=== PATIENT | female | born 2005 | race Two or more races ===

== ENCOUNTER 2024-06-16 23:57 | Emergency (ER) | payer MEDICAID, SELFPAY ==
[2024-06-16 23:58] VITALS: BMI 28.3
[2024-06-17 00:12] VITALS: BP 128/77; PULSE 88; RESP 18; TEMP 36.9; O2SAT 99
--- NOTE | 2024-06-17 00:19 | XR_ITS ---
EXAMINATION: Ankle, 3 views . Technique: Ankle AP, oblique, lateral 3 views Date and time of exam: June 17, 2024 0022 hrs. Indications: Injury to the ankle today, ankle pain Findings: No acute fracture No ankle dislocation Impression: No acute fracture
--- NOTE | 2024-06-17 00:20 | EDNOTE_ITS ---
<Statement entered by Luz Sanderson MD - 06/17/24 22:07> As co-signing physician, I was present and available for consult prn. I concur with the plan and care as documented by the midlevel provider. Lower Extremity Injury RME/HPI General Chief Complaint: Ankle/Foot Injury Stated Complaint: RIGHT ANKLE INJURY Time Seen by Provider: 06/17/24 00:07 Arrival date/time: 06/16/24 23:57 18 year old female present to emergency room with c/o of right ankle injury last night. LOCATION: ankle SEVERITY: Symptoms are described as being severe with limitations on activities of daily living QUALITY: Symptoms are described as being dull or achy CONTEXT: jump off porch and injury ankle/rolled DURATION/TIMING: The symptoms started approximately 1 day ago and have been constant this then. ASSOCIATED SYMPTOMS: The patient is unable to identify any other associated symptoms. MODIFYING FACTORS: The patient is unable to identify any alleviating or aggravating symptoms. PERTINENT ROS: no fevers, no headache, no neck or chest pain, no unexplained nausea or vomiting, no focal neurological deficits REVIEW OF SYSTEMS: See History of Present Illness - with the exception of those mentioned in the history of present illness, all other systems reviewed and reported as negative GENERAL: In general the patient is awake, interactive, in an emergency department gurney. HEAD/EYES/EARS/NOSE/THROAT: normo-cephalic, atraumatic, mucus membranes are moist, anicteric, palpebral conjunctiva is pink, trachea is midline. CARDIOVASCULAR: regular rate and regular rhythm, no murmurs, heart sounds are not distant, strong pulses in all four extremities that are equal and symmetric bilateral upper and lower extremities, normal capillary refill. NEUROLOGICAL: cranio-facial features are symmetric, moves all four extremities equally without obvious limitations or weakness. EXTREMITY: right lateral ankle tenderness and swelling noted. limp with ambulation no tenderness to palpation over the long bones or large joints of the bilateral upper extremities, no joint swelling, no joint erythema, no unilateral leg swelling and no peripheral edema. SKIN: warm, dry, well-perfused, no jaundice, no rash, no telangiectasias or petechia. PSYCH: calm, cooperative, no evidence of psychosis or agitation Related Data Previous Rx's ?Medication ?Instructions ?Recorded acetaminophen 500 mg tablet 1,000 mg (2 x 500 mg) PO Q6H PRN 08/06/20 (Tylenol Extra Strength) fever or pain #30 tabs albuterol sulfate 90 mcg/actuation 2 puff inhalation QID PRN 08/06/20 aerosol inhaler shortness of breath or wheezing #18 grams azithromycin 250 mg tablet See Rx Instructions PO .COMPLEX #6 08/06/20 tabs ibuprofen 800 mg tablet 800 mg PO TID PRN pain #30 tabs 08/20/23 Allergies Allergy/AdvReac Type Severity Reaction Status Date / Time No Known Allergies Allergy Verified 08/20/23 18:30 Course Course Course Narrative: Presentation consistent with ankle strain/sprain. Per [facility] Rules, acute fx could not ruled out so xrays were obtained.? Above radiographs orders without evidence of acute fracture. Provided CRISTIN wrapping, crutches. Also provided prescription for Lortab to use as needed for pain. Patient may also use ibuprofen as needed for pain. Follow up with primary physician or sports me dicine clinic if continued pain. Return to ED if pain uncontrolled, neurovascular change, or other concerns. Plan:? ? Discharge from ED Wear CRISTIN wrap as needed Crutches, weight bearing as tolerated Patient instructed on Rest, Ice, Compression, Elevation Follow up with PCP or Sports Medicine? Informed to return to emergency department if has new or worsening symptoms. Expressed understanding of and agreement with plan and all questions answered. Quality Measures none Orders Category Date Time Status Crutches .NOW Care 06/17/24 00:45 Active Splint / Immobilizer STAT Care 06/17/24 00:45 Active XR ankle comp RT min 3V Stat Exams 06/17/24 00:19 Taken Vital Signs Vital signs: Vital Signs Temperature 98.5 F 06/17/24 00:12 Pulse Rate 88 06/17/24 00:12 Respiratory Rate 18 06/17/24 00:12 Blood Pressure 128/77 06/17/24 00:12 Pulse Oximetry (%) 99 06/17/24 00:12 Oxygen Delivery Method Room Air 06/17/24 00:12 Extremity Injury, Lower Patient data External records reviewed:: None Clinical information provided by:: patient Social determinants that could affect healthcare access:: none Patient has the following chronic illnesses:: none How is presenting disease/condition affected by chronic disease/condition?: no chronic disease Evaluation data The following diagnostics were reviewed and interpreted by me:: radiology exam(s) Lab and/or radiology exams considered but not ordered:: none Interpretation Summary: xray: no acute findings Medications / Prescriptions Medications or Prescriptions considered but not ordered:: none Medication administrations:: none Consultations Consultation(s) initiated? (list below): No Diagnosis Extremity Injury, Lower Differential Diagnosis: ankle sprain and strain and ankle fracture Most likely diagnosis given after review of the tests above:: ankle sprain Admission Indicated Admission indicated?: not indicated Admission Request Was there a request for admission?: No Disposition Plan Disposition Plan: Discharge Discharge Attestation Discharge Attestation: The patient and all family members were given an opportunity to ask questions and understood the discharge instructions. Discharge instructions specifically effects, indications for sooner follow up or return to the emergency department, and the expected course of current diagnosis. Patient condition: Stable Discharge Plan Plan Patient Disposition: HOME (Self Care) Prescriptions/Referrals Prescriptions/Med Rec: No Action azithromycin 250 mg tablet See Rx Instructions .ROUTE .COMPLEX Qty: 6 0RF Rx Instructions: take 500 mg today (day 1), then 250 mg for 4 days (days 2-5) albuterol sulfate 90 mcg/actuation HFA aerosol inhaler 2 puff inhalation QID PRN (Reason: shortness of breath or wheezing) Qty: 18 0RF acetaminophen [Tylenol Extra Strength] 500 mg tablet 1,000 mg PO Q6H PRN (Reason: fever or pain) Qty: 30 0RF ibuprofen 800 mg tablet 800 mg PO TID PRN (Reason: pain) Qty: 30 0RF Problem List Clinical Impression: Ankle sprain and strain Patient/Caregiver Discharge Instructions Education Materials: ED Ankle Sprain (Adult) Print Language: Turkish Stand Alone Forms: [facility] Award Info., Work/School Release, Patient Portal Info Letter
== END 2024-06-17 01:08 | disposition home or self-care (01) ==
LOC: SERX 06-17 01:00
PROVIDERS: Emergency Provider Emergency Medicine; PCP Physician Assistant
DX: S93.401A Sprain of unspecified ligament of right ankle, initial encounter (principal); S96.911A Strain of unspecified muscle and tendon at ankle and foot level, right foot, initial encounter; X50.1XXA Overexertion from prolonged static or awkward postures, initial encounter; Y93.39 Activity, other involving climbing, rappelling and jumping off
CPT/HCPCS: 73610; 99283